=== PATIENT | female | born 1955 | race Caucasian/White ===

== ENCOUNTER 2019-01-08 11:28 | Inpatient (IN) ==
[2019-01-08] MEDS ORDERED: MAGNESIUM SULF RIDER 4 GM in PREMIX 1 EACH IV PRN (11:35)
[2019-01-08] MEDS ORDERED: MAGNESIUM SULF RIDER 2 GM in PREMIX 1 EACH IV PRN (11:35)
[2019-01-08] MEDS ORDERED: diphenhydrAMINE CAP 25 MG CAPSULE PO PRN (11:35)
[2019-01-08] MEDS ORDERED: ONDANSETRON 4 MG/2 ML VIAL IV PRN (11:35)
[2019-01-08] MEDS ORDERED: ZALEPLON 5 MG CAPSULE PO PRN (11:35)
[2019-01-08] MEDS ORDERED: ceFAZolin 1,000 MG in SYRINGE 1 EACH IV ONE (12:56)
[2019-01-08] MEDS ORDERED: ceFAZolin 1,000 MG VIAL IRRIG ONE (12:56)
[2019-01-08] MEDS ORDERED: SODIUM CHLORIDE 0.9% 1,000 ML IV SCH (13:00)
[2019-01-08] MEDS ORDERED: MIDAZOLAM 2 MG/2 ML VIAL ONE ×3 (13:12→15:01)
[2019-01-08] MEDS ORDERED: LIDOCAINE 1% 20 ML VIAL ONE ×2 (13:13→13:17)
[2019-01-08] MEDS ORDERED: HEPARIN/NACL 0.9% 2 UNITS/ML 500 ML IV ONE ×2 (13:13→13:17)
[2019-01-08] MEDS ORDERED: fentaNYL 100 MCG/2 ML VIAL ONE ×3 (13:13→15:02)
[2019-01-08] MEDS ORDERED: ceFAZolin 1,000 MG VIAL ONE (13:17)
[2019-01-08] MEDS ORDERED: TISSUE ADHESIVE 1 EACH APPLICATOR TOP ONE (15:36)
[2019-01-08] MEDS ORDERED: ACETAMINOPHEN 325 MG TABLET PO PRN (15:51)
[2019-01-08] MEDS ORDERED: NITROGLYCERIN SL 0.4 MG TABLET SL PRN (15:52)
[2019-01-08] MEDS: SODIUM CHLORIDE 0.45% 1,000 ML IV SCH ×2 (16:46→23:17)
[2019-01-08 18:03] LABS: Basophils % 0.4 % (0.0-0.8); Hematocrit 40.9 VOL% (35.7-47.0); Hemoglobin 12.4 GM/DL (12.0-16.0); Immature Granulocytes % 0.4 %; Immature Granulocytes Absolute 0.03 #; Lymphocytes # 1.2 10*3/uL (1.4-4.0); Lymphocytes % 15.7 % (21.3-54.2); Mean Corpuscular HGB Conc 30.3 GM/DL (32-36); Mean Corpuscular Volume 90.5 FL (87-102); Mean Platelet Volume 12.3 FL (9.6-12.0); Monocytes % 7.1 % (1.7-12.7); Neutrophils % 76.4 % (38.7-73.9); Platelet Count 132 T/CUMM (130-400); Red Blood Count 4.52 MC/CUMM (3.8-5.5); Red Cell Distribution Width 14.3 % (9.3-17.3); White Blood Count 7.3 T/CUMM (4-12)
[2019-01-08 18:21] LABS: Alanine Aminotransferase 20 U/L (13-56); Alkaline Phosphatase 62 U/L (45-117); Aspartate Amino Transferase 29 U/L (0-37); Bilirubin,Total < 0.39 MG/DL (0.2-1.0); Blood Urea Nitrogen 13 MG/DL (7-18); Calcium 9.1 MG/DL (8.5-10.1); Glucose 86 MG/DL (74-106); Osmolality,Calculated 268.1 MOS/KG (273-304); Total Protein 8.5 G/DL (6.4-8.3)
[2019-01-08 18:31] LABS: Anisocytosis 1+; Lymphocytes 15 % (20-55); Microcytosis Slight; Ovalocytes Slight; Platelet Estimate Normal; Segmented Neutrophils 78 % (50-85); Total Cells Counted 100
[2019-01-08] MEDS: RANOLAZINE 500 MG TABLET PO SCH (20:43)
[2019-01-08] MEDS: oxyCODONE/ACETAMINOPHEN 5-325 MG TABLET PO PRN (21:37)
[2019-01-08] MEDS: ceFAZolin 1,000 MG in SYRINGE 1 EACH IV SCH (22:52)
[2019-01-09] MEDS: SODIUM CHLORIDE 0.45% 1,000 ML IV SCH (04:57)
[2019-01-09 06:15] LABS: Basophils % 0.3 % (0.0-0.8); Eosinophils % 0.7 % (0.00-10.9); Hematocrit 36.4 VOL% (35.7-47.0); Hemoglobin 11.5 GM/DL (12.0-16.0); Immature Granulocytes % 0.3 %; Immature Granulocytes Absolute 0.02 #; Lymphocytes # 1.2 10*3/uL (1.4-4.0); Lymphocytes % 20.8 % (21.3-54.2); Mean Corpuscular HGB Conc 31.6 GM/DL (32-36); Mean Corpuscular Volume 86.7 FL (87-102); Mean Platelet Volume 12.1 FL (9.6-12.0); Monocytes % 13.5 % (1.7-12.7); Neutrophils % 64.4 % (38.7-73.9); Platelet Count 155 T/CUMM (130-400); White Blood Count 5.9 T/CUMM (4-12)
[2019-01-09] MEDS: ceFAZolin 1,000 MG in SYRINGE 1 EACH IV SCH (06:18)
[2019-01-09 06:29] LABS: Calcium 8.7 MG/DL (8.5-10.1); Osmolality,Calculated 272.8 MOS/KG (273-304)
[2019-01-09 06:44] LABS: Calcium 8.8 MG/DL (8.5-10.1); Osmolality,Calculated 272.8 MOS/KG (273-304)
[2019-01-09] MEDS: LEVOTHYROXINE 125 MCG TABLET PO SCH (07:24)
[2019-01-09] MEDS: FUROSEMIDE 40 MG/4 ML VIAL IV SCH ×2 (08:36→15:37)
[2019-01-09] MEDS: CALCIUM (CARBONATE)/VITAMIN D 600 MG-400 UNIT TABLET PO SCH (08:39)
[2019-01-09] MEDS: ASPIRIN EC 81 MG TABLET PO SCH (08:39)
[2019-01-09] MEDS: PANTOPRAZOLE 40 MG TABLET PO SCH (08:39)
[2019-01-09] MEDS: OMEGA 3 ACID ETHYL ESTERS 1 GM CAPSULE PO SCH (08:39)
[2019-01-09] MEDS: LISINOPRIL 2.5 MG TABLET PO SCH (08:39)
[2019-01-09] MEDS: hydroCHLOROthiazide 12.5 MG CAPSULE PO SCH (08:39)
[2019-01-09] MEDS: RANOLAZINE 500 MG TABLET PO SCH ×2 (08:40→20:05)
[2019-01-09] MEDS ORDERED: Mirabegron [Myrbetriq] 50 MG PO SCH (09:00)
[2019-01-09] MEDS ORDERED: DILTIAZEM CD 180 MG CAPSULE PO SCH (09:00)
[2019-01-09] MEDS ORDERED: SODIUM CHLORIDE 0.9% 1,000 ML IV SCH (09:30)
[2019-01-09] MEDS: ALBUTEROL/IPRATROPIUM 3 ML NEB RESP TX SCH ×3 (10:05→19:15)
[2019-01-09 15:56] LABS: Apearance,Urine CLEAR (Clear); Bilirubin,Urine Negative (Negative); Blood, Urine Negative (Negative); Glucose,Urine (UA) Negative (Negative); Hyaline Casts,Urine 18 /LPF (0-3); Ketones,Urine Negative (Negative); Mucus,Urine Occasional /LPF (Occasional); Nitrite,Urine Negative (Negative); Protein,Urine Negative; Squamous Epithelial Cell,Urine Occasional /HPF (0-10); Urine Color Yellow (Yellow); Urine Specific Gravity 1.015 (1.001-1.035); Urine Urobilinogen < 2.0 EU/DL (0.2-1.0)
[2019-01-09] MEDS: oxyCODONE/ACETAMINOPHEN 5-325 MG TABLET PO PRN (16:48)
[2019-01-10] MEDS: ALBUTEROL/IPRATROPIUM 3 ML NEB RESP TX SCH ×6 (02:28→23:00)
[2019-01-10 04:31] LABS: Basophils % 0.5 % (0.0-0.8); Eosinophils % 0.5 % (0.00-10.9); Hematocrit 38.1 VOL% (35.7-47.0); Hemoglobin 12.4 GM/DL (12.0-16.0); Immature Granulocytes % 0.8 %; Immature Granulocytes Absolute 0.06 #; Lymphocytes # 1.5 10*3/uL (1.4-4.0); Lymphocytes % 20.4 % (21.3-54.2); Mean Corpuscular HGB Conc 32.5 GM/DL (32-36); Mean Platelet Volume 11.7 FL (9.6-12.0); Monocytes % 17.4 % (1.7-12.7); Neutrophils % 60.4 % (38.7-73.9); Platelet Count 137 T/CUMM (130-400); Red Blood Count 4.43 MC/CUMM (3.8-5.5); Red Cell Distribution Width 13.7 % (9.3-17.3); White Blood Count 7.4 T/CUMM (4-12)
[2019-01-10 04:51] LABS: Calcium 9.2 MG/DL (8.5-10.1)
[2019-01-10 05:02] LABS: Eosinophils 1 % (0-10); Hypochromasia 1+; Lymphocytes 22 % (20-55); Platelet Estimate Adequate; Segmented Neutrophils 61 % (50-85); Total Cells Counted 100
[2019-01-10] MEDS: LEVOTHYROXINE 125 MCG TABLET PO SCH ×2 (06:22→11:44)
[2019-01-10] MEDS ORDERED: ALBUTEROL/IPRATROPIUM 3 ML NEB RESP TX ONE (08:23)
[2019-01-10] MEDS: RANOLAZINE 500 MG TABLET PO SCH (11:43)
[2019-01-10] MEDS: ASPIRIN EC 81 MG TABLET PO SCH (11:43)
[2019-01-10] MEDS: LISINOPRIL 2.5 MG TABLET PO SCH (11:43)
[2019-01-10] MEDS: CALCIUM (CARBONATE)/VITAMIN D 600 MG-400 UNIT TABLET PO SCH (11:43)
[2019-01-10] MEDS: OMEGA 3 ACID ETHYL ESTERS 1 GM CAPSULE PO SCH (11:44)
[2019-01-10] MEDS: PANTOPRAZOLE 40 MG TABLET PO SCH (11:44)
[2019-01-10] MEDS: DOCUSATE SODIUM 100 MG CAPSULE PO PRN (11:44)
[2019-01-10] MEDS: DILTIAZEM CD 120 MG CAPSULE PO SCH (11:44)
[2019-01-10] MEDS: hydroCHLOROthiazide 12.5 MG CAPSULE PO SCH (11:44)
[2019-01-10] MEDS: FUROSEMIDE 40 MG/4 ML VIAL IV SCH (11:44)
[2019-01-10] MEDS ORDERED: PROPOFOL 200 MG/20 ML VIAL IV ONE (13:20)
[2019-01-10] MEDS ORDERED: SODIUM CHLORIDE 0.9% 500 ML IV ONE (15:56)
[2019-01-10] MEDS ORDERED: SODIUM CHLORIDE 0.9% 1,000 ML IV SCH (18:30)
[2019-01-10] MEDS: oxyCODONE/ACETAMINOPHEN 5-325 MG TABLET PO PRN (21:25)
[2019-01-11] MEDS: LEVOTHYROXINE 125 MCG TABLET PO SCH (05:58)
[2019-01-11 06:01] LABS: Basophils % 0.4 % (0.0-0.8); Eosinophils # 0.1 10*3/uL (0.0-0.87); Eosinophils % 1.2 % (0.00-10.9); Hematocrit 36.8 VOL% (35.7-47.0); Hemoglobin 11.7 GM/DL (12.0-16.0); Immature Granulocytes % 0.3 %; Immature Granulocytes Absolute 0.02 #; Lymphocytes # 1.6 10*3/uL (1.4-4.0); Lymphocytes % 23.7 % (21.3-54.2); Mean Corpuscular HGB Conc 31.8 GM/DL (32-36); Mean Corpuscular Volume 86.2 FL (87-102); Mean Platelet Volume 11.4 FL (9.6-12.0); Neutrophils % 57.4 % (38.7-73.9); Platelet Count 133 T/CUMM (130-400); Red Blood Count 4.27 MC/CUMM (3.8-5.5); Red Cell Distribution Width 13.6 % (9.3-17.3); White Blood Count 6.8 T/CUMM (4-12)
[2019-01-11 06:28] LABS: Eosinophils 3 % (0-10); Lymphocytes 16 % (20-55); Microcytosis 1+; Platelet Estimate Adequate; Segmented Neutrophils 74 % (50-85); Total Cells Counted 100
[2019-01-11 06:29] LABS: Hypochromasia Slight
[2019-01-11 06:33] LABS: Calcium 9.1 MG/DL (8.5-10.1)
[2019-01-11] MEDS: ALBUTEROL/IPRATROPIUM 3 ML NEB RESP TX SCH ×4 (07:07→18:57)
[2019-01-11] MEDS: ASPIRIN EC 81 MG TABLET PO SCH (08:38)
[2019-01-11] MEDS: DOCUSATE SODIUM 100 MG CAPSULE PO PRN (08:38)
[2019-01-11] MEDS: hydroCHLOROthiazide 12.5 MG CAPSULE PO SCH (08:39)
[2019-01-11] MEDS: OMEGA 3 ACID ETHYL ESTERS 1 GM CAPSULE PO SCH (08:39)
[2019-01-11] MEDS: PANTOPRAZOLE 40 MG TABLET PO SCH (08:39)
[2019-01-11] MEDS: POTASSIUM CHLORIDE 20 MEQ TABLET PO PRN ×2 (08:39→09:00)
[2019-01-11] MEDS: DILTIAZEM CD 120 MG CAPSULE PO SCH (08:39)
[2019-01-11] MEDS: RANOLAZINE 500 MG TABLET PO SCH (09:00)
[2019-01-11] MEDS: CALCIUM (CARBONATE)/VITAMIN D 600 MG-400 UNIT TABLET PO SCH (09:00)
[2019-01-11] MEDS ORDERED: FUROSEMIDE 40 MG/4 ML VIAL IV ONE (09:48)
[2019-01-11] MEDS ORDERED: AZITHROMYCIN 250 MG TABLET PO ONE (09:49)
[2019-01-11] MEDS ORDERED: methylPREDNISolone SOD SUC 40 MG/1 ML VIAL IV ONE (09:49)
[2019-01-11] MEDS: ENOXAPARIN 40 MG/0.4 ML SYRINGE SUBCUT SCH (11:53)
[2019-01-11] MEDS ORDERED: GLUCAGON 1 MG VIAL ONE (12:00)
[2019-01-11] MEDS: ACETAMINOPHEN 325 MG TABLET PO PRN (15:48)
[2019-01-11] MEDS: MONTELUKAST 10 MG TABLET PO SCH (20:31)
[2019-01-12] MEDS: ALBUTEROL/IPRATROPIUM 3 ML NEB RESP TX SCH ×6 (00:03→23:34)
[2019-01-12 03:32] LABS: ABG Base Excess 6.3 MMOL/L (-2.5-2.5); ABG HCO3 30.1 MMOL/L (20-26); ABG Oxygen Saturation 94.8 % (95-100); ABG PCO2 49.5 MM HG (35-48); ABG PH 7.419 (7.35-7.45); ABG TCO2 28.2 MMOL/L (23-27); Allen Test Positive; Pt O2 Delivery Device Other
[2019-01-12 05:17] LABS: % Iron Saturation 8.6 % (18-50)
[2019-01-12 05:29] LABS: Calcium 9.8 MG/DL (8.5-10.1); Free T4 (Free Thyroxine) 1.29 NG/DL (0.76-1.46); Osmolality,Calculated 271.4 MOS/KG (273-304); Thyroid Stimulating Hormone 0.193 uIU/ml (0.358-3.74)
[2019-01-12] MEDS: LEVOTHYROXINE 125 MCG TABLET PO SCH (06:41)
[2019-01-12] MEDS: MONTELUKAST 10 MG TABLET PO SCH ×2 (08:41→21:17)
[2019-01-12] MEDS: PANTOPRAZOLE 40 MG TABLET PO SCH (08:41)
[2019-01-12] MEDS: CALCIUM (CARBONATE)/VITAMIN D 600 MG-400 UNIT TABLET PO SCH (08:41)
[2019-01-12] MEDS: AZITHROMYCIN 250 MG TABLET PO SCH (08:41)
[2019-01-12] MEDS: hydroCHLOROthiazide 12.5 MG CAPSULE PO SCH (08:41)
[2019-01-12] MEDS: OMEGA 3 ACID ETHYL ESTERS 1 GM CAPSULE PO SCH (08:41)
[2019-01-12] MEDS: ENOXAPARIN 40 MG/0.4 ML SYRINGE SUBCUT SCH ×2 (08:41→10:13)
[2019-01-12] MEDS: ASPIRIN EC 81 MG TABLET PO SCH (08:41)
[2019-01-12] MEDS: DOCUSATE SODIUM 100 MG CAPSULE PO PRN (09:25)
[2019-01-12] MEDS: ACETAMINOPHEN 325 MG TABLET PO PRN (11:25)
[2019-01-12] MEDS: FERROUS SULFATE 325 MG TABLET PO SCH ×2 (11:26→21:17)
[2019-01-12] MEDS ORDERED: LEVOTHYROXINE 125 MCG TABLET PO SCH (12:31)
[2019-01-12] MEDS: FEXOFENADINE 180 MG TABLET PO SCH (14:09)
[2019-01-12] MEDS: OXYMETAZOLINE 0.05% NASAL SPRAY 15 ML BOTTLE BOTH NARES SCH ×2 (14:09→21:18)
[2019-01-12] MEDS: oxyCODONE/ACETAMINOPHEN 5-325 MG TABLET PO PRN (22:32)
[2019-01-13 05:33] LABS: Basophils % 0.5 % (0.0-0.8); Eosinophils % 0.4 % (0.00-10.9); Hemoglobin 12.6 GM/DL (12.0-16.0); Immature Granulocytes % 0.4 %; Immature Granulocytes Absolute 0.03 #; Lymphocytes # 2.2 10*3/uL (1.4-4.0); Lymphocytes % 29.1 % (21.3-54.2); Mean Corpuscular HGB Conc 32.3 GM/DL (32-36); Mean Corpuscular Volume 86.3 FL (87-102); Mean Platelet Volume 11.5 FL (9.6-12.0); Monocytes % 14.8 % (1.7-12.7); Neutrophils % 54.8 % (38.7-73.9); Platelet Count 158 T/CUMM (130-400); Red Blood Count 4.52 MC/CUMM (3.8-5.5); Red Cell Distribution Width 13.3 % (9.3-17.3); White Blood Count 7.5 T/CUMM (4-12)
[2019-01-13 05:43] LABS: Calcium 9.3 MG/DL (8.5-10.1); Osmolality,Calculated 275.1 MOS/KG (273-304)
[2019-01-13] MEDS: ALBUTEROL/IPRATROPIUM 3 ML NEB RESP TX SCH ×2 (07:22→11:12)
[2019-01-13] MEDS: ASPIRIN EC 81 MG TABLET PO SCH (09:21)
[2019-01-13] MEDS: CALCIUM (CARBONATE)/VITAMIN D 600 MG-400 UNIT TABLET PO SCH (09:21)
[2019-01-13] MEDS: AZITHROMYCIN 250 MG TABLET PO SCH (09:21)
[2019-01-13] MEDS: ENOXAPARIN 40 MG/0.4 ML SYRINGE SUBCUT SCH ×2 (09:21→11:48)
[2019-01-13] MEDS: PANTOPRAZOLE 40 MG TABLET PO SCH (09:21)
[2019-01-13] MEDS: MONTELUKAST 10 MG TABLET PO SCH (09:21)
[2019-01-13] MEDS: FEXOFENADINE 180 MG TABLET PO SCH (09:21)
[2019-01-13] MEDS: FERROUS SULFATE 325 MG TABLET PO SCH (09:21)
[2019-01-13] MEDS: OMEGA 3 ACID ETHYL ESTERS 1 GM CAPSULE PO SCH (09:21)
[2019-01-13] MEDS: hydroCHLOROthiazide 12.5 MG CAPSULE PO SCH (09:25)
[2019-01-13] MEDS: OXYMETAZOLINE 0.05% NASAL SPRAY 15 ML BOTTLE BOTH NARES SCH (09:25)
[2019-01-13] MEDS ORDERED: cephALEXin 500 MG CAPSULE PO SCH (12:00)
[2019-01-13 12:06] VITALS: BP 111/72
[2019-01-14] MEDS ORDERED: FUROSEMIDE 40 MG TABLET PO SCH (09:00)
[2019-01-14] MEDS ORDERED: FLUTICASONE 50 MCG NASAL SPRAY 16 GM BOTTLE BOTH NARES SCH (09:00)
== END 2019-01-13 14:15 | disposition home or self-care (01) | DRG 242 ==
LOC: N.TELES 11:55
PROVIDERS: ADMIT Internal Medicine Cardiovascular Disease; ATTEND Internal Medicine Cardiovascular Disease